=== PATIENT | female | born 1980 | race Caucasian/White ===

== ENCOUNTER → 2020-10-01 | Outpatient (CLI) | payer OTHER ==
[~2020-10-01] MED LIST: FLOVENT 220.1 GM/INH INH; IBUPROFEN800 MG PO; MEDROL DOSEPAK 24 MG PO; PROAIR DIGIHAL90 MCG INH; ZOFRAN 4 MG TAB4 MG PO
== END ==
LOC: EMI 10:47
DX: M25.561 Pain in right knee (principal)
CPT/HCPCS: 73721